=== PATIENT | male | born 2000 | race Caucasian/White ===

== ENCOUNTER 2020-02-08 23:01 | Emergency (ER) | payer MEDICAID ==
[~2020-02-08] VITALS: Ht 190.5 cm; Wt 74.5 kg
[2020-02-08 23:03] VITALS: BP 160/102
[2020-02-08] MEDS ORDERED: TETanus/Pertussis (Acell)/Diphther VAC/PF (Tdap-Adult) 0.5ml syringe IMVAC ONE (23:10)
[2020-02-08] MEDS ORDERED: bacitracin 15gm ointment TP ONE (23:10)
[2020-02-08] MEDS ORDERED: LIDOcaine 1% W/epiNEPHrine 1:200,000 10ml vial IJ ONE (23:10)
--- NOTE | 2020-02-08 23:37 | NUR ---
WOUND FLUSHED W/ 40 ML NS USING AN IV CANNULA TO FLUSH INSIDE OF WOUND
--- NOTE | 2020-02-09 15:44 | NUR ---
PT CALLED TO INFORM THAT HE RECEIVED ANOTHER PT'S PERSCRIPTION WITHIN HIS DISCHARGE PACKET YESTERDAY; 02/08/2020. PT RETURNED THE PERSCRIPTION TO THE ER.
== END 2020-02-09 00:16 | disposition home or self-care (01) ==
LOC: ER 23:02
DX: S00.85XA Superficial foreign body of other part of head, initial encounter (principal); W22.8XXA Striking against or struck by other objects, initial encounter; Y93.89 Activity, other specified; Y92.89 Other specified places as the place of occurrence of the external cause; Y99.8 Other external cause status
CPT/HCPCS: 10120; 90471; 90715; 99284

== ENCOUNTER 2022-05-17 10:35 | Inpatient (IN) | payer OTHER, MEDICAID ==
[~2022-05-17] VITALS: Ht 188 cm; Wt 69.2 kg
[2022-05-17 13:30] VITALS: BP 146/91
[2022-05-17] MEDS ORDERED: loperamide 2mg capsule PO PRN (13:40)
[2022-05-17] MEDS ORDERED: mag hydrox/Alum hydrox/simeth 30ml oral suspension PO PRN (13:40)
[2022-05-17] MEDS ORDERED: magnesium hydroxide 30ml (MOM) UD suspension PO PRN (13:40)
[2022-05-17] MEDS ORDERED: acetaminophen 325mg tablet PO PRN ×2 (13:40)
[2022-05-17] MEDS: NICOTINE POLACRILEX 2 MG LOZENGE BC PRN ×2 (17:33→19:43)
[2022-05-17] MEDS ORDERED: nicotine 21mg patch - 24 hr TD ONE (17:35)
[2022-05-17] MEDS: nicotine 21mg patch - 24 hr TD SCH (17:40)
[2022-05-17] MEDS ORDERED: LORazepam 1 MG tablet PO PRN (18:00)
[2022-05-17] MEDS ORDERED: hydrOXYzine 25 MG tablet PO PRN (18:00)
--- NOTE | 2022-05-17 18:32 | NUR ---
ADMIT NOTE: Pt. is a direct admit from [facility]. Per 5150, Pt. presented as hopeless with thoughts of people being better off without him. He attempted to kill himself by overdosing on whatever pills were available which happened to be Adderall. Pt. cooperative with skin check and admission assessment. Pt. reports that his brother and girlfriend encouraged him to come into [facility] ER after he took a whole bottle of Adderall. Pt. reports that he has had really bad depression for the past 6 months and thats when he started drinking. Pt. states, I never tell people about my feelings. People found out that I started doing therapy and then I had to stop doing therapy because I got kicked off my insurance and then started going downhill. I didnt tell anyone and I snapped. I think I need antidepressants. The drinking numbs me so I dont feel anything. Pt. becomes tearful during interview, states, Ativan helped me. I dont mind stopping drinking, Shelia never been a fan of it. Pt. reports he received a total of 3 mg of Ativan at [facility]. Pt. reports previous suicide gesture a month and a half ago. Pt. states that he drove somewhere with his gun and his girlfriend and parents talked him down. Pt. reports he still has the gun, but that his parents have the ammo. Pt. reports he has an 11 month old daughter. Pt. states, after seeing my daughter I would never attempt suicide again. Pt. started on CIWA protocol. RN endorsed to assistant shift supervisor.
[2022-05-17 20:00] VITALS: BP 121/79
[2022-05-17] MEDS: hydrOXYzine 25 MG tablet PO PRN (20:42)
--- NOTE | 2022-05-18 01:15 | NUR ---
Nurse Progress Note:Reji Problem: Pt. is a direct admit from [facility]. Per 5150, Pt. presented as hopeless with thoughts of people being better off without him. He attempted to kill himself by overdosing on whatever pills were available which happened to be Adderall. Intervention: Provided with a safe and therapeutic environment, clear communication, active listening and positive encouragement. Response:Patient in room talking on phone to girlfriend at shift change. Patient is very polite and receptive. Pt 1:1, Pt denies A/V/H pt states he did come in because he had taken pills but he never had a plan. Patient describes that he had been drinking a lot and not feeling very good about himself. Pt claims that he was seeing a therapist but his Insurance no longer worked for that provider and he had trouble finding help. Pt also iterated that he did take Adderall 15-20 pills, but he thinks it was more attention seeking from his girlfriend and brother. The patient doesn't feel as though he has a serious drinking problem reporting that he only drinks, "lite beer." Patient took Hydroxyzine to help with sleep and anxiety. Pt given CIWA at 1930, 2330, and 0330. Patient cooperative with all assessments. Patient fell asleep shortly after evening meds. Will continue to monitor. Plan: Interrupt current crisis, Provide encouragement and a safe environment. q15 safety checks. Keep monitoring patient and assessing with CIWA.
[2022-05-18] MEDS: NICOTINE POLACRILEX 2 MG LOZENGE BC PRN ×4 (07:48→19:02)
[2022-05-18 08:00] VITALS: BP 124/71
[2022-05-18 08:34] LABS: HEMOGLOBIN A1C 5.2 % (4.5-6.2)
[2022-05-18 08:46] LABS: CHOL/HDL RATIO 2.1 (0.00-4.99); CHOLESTEROL 205 MG/DL (0-200); HDL CHOLESTEROL 98 MG/DL (35-60); LDL CHOLESTEROL 89 MG/DL (50-100); TRIGLYCERIDES 85 MG/DL (20-135)
[2022-05-18] MEDS: hydrOXYzine 25 MG tablet PO PRN ×2 (15:21→19:02)
--- NOTE | 2022-05-18 16:14 | NUR ---
Nurse Progress Note: Reji Problem: Pt. is a direct admit from [facility]. Per 5150, Pt. presented as hopeless with thoughts of people being better off without him. He attempted to kill himself by overdosing on whatever pills were available which happened to be Adderall. Intervention: Provided with a safe and therapeutic environment, clear communication, active listening and positive encouragement. Response: Pt. denies SI, HI, A/VH, reports he was admitted d/t SA and his plans are to return home. Pt. presents as depressed and c/o anxiety; PRN Atarax given, which was effective. Pt. spent most of the shift in his room resting and talking on the phone, he also received a visitor and met with social media community manager. He has received numerous nicotine lozenges PRN and reports they are helpful. Pt. ate all his meal in the main dining with cohorts but keeps to himself. He is clean and fairly groomed and wears unit scrubs. Pt. takes his meds without hesitancy and is pleasant. CIWA continues to be monitored and was decreased to TID per provider. Plan: Interrupt current crisis and provides safe temporary placement, CIWA monitoring
--- NOTE | 2022-05-18 16:43 | NUR ---
Aleksandr is a 21 y/o male who was placed on 5150 for danger to self after he overdosed on Adderall in a suicide attempt. His brother took him to [facility] ED where he was evaluated and placed on 5150. This is his first hospitalization. Aleksandr reported "a bombshell went off in my life" and he was feeling overwhelmed and hopeless. He reported he and his girlfriend's cars had both broken down within days of each other, he has to pay child support and has difficulty affording it, he wasn't seeing his 11 month old daughter, and he had been suspended at work. Aleksandr reported he has struggled with depression for a long time and was usually able to shake it off. He reported he really started to get depressed when he and his ex, the mother of his daughter, broke up. He reported he was left to pay off the ex's bills and she wasn't letting him see their daughter. Aleksandr reported he was suicidal about a month ago and while intoxicated he took a gun and drove to the barn on the property he lives on and started calling friends, "I just wanted to feel loved". Aleksandr reported he has been self-medicating with alcohol, 10 beers/night. He reported he was seeing a counselor through [facility] and had to stop due to insurance issues. He reported he "loved" having someone to talk to. Aleksandr reported he plans on returning to his home where he lives with his girlfriend. He also wants to see a psychiatrist and a counselor. ANNA Mora Addendum: 05/18/22 at 1643 by Marilin CANO Amended: Links added.
[2022-05-18] MEDS ORDERED: traZODone 50mg tablet PO PRN (18:15)
[2022-05-18] MEDS ORDERED: ESCITALOPRAM OXALATE 5 MG TABLET PO ONE (18:15)
[2022-05-18 19:57] VITALS: BP 119/74
--- NOTE | 2022-05-18 23:43 | NUR ---
Nurse Progress Note Problem: Pt. is a direct admit from [facility]. Per 5150, Pt. presented as hopeless with thoughts of people being better off without him. He attempted to kill himself by overdosing on whatever pills were available which happened to be Adderall. Intervention: One to one with the patient and assessed for severity of depressive symptoms and self harm risk. CIWA assessed. Physical assessment completed. PRN medications given were Vistaril and then Trazodone at HS. He is on q 15 minute safety checks. Assessed for side effects to medications. Response: The patient was very pleasant and open when approached for the evening assessment. He stated that he has never had any kind of ETOH withdrawals and did not feel that he was experiencing them now. He scored a 1 on the CIWA because he reported that he had anxiety. His vital signs were WNL. He stated he felt very frustrated about being held on the inpatient and claims that while in the ER on a hold he was told that his girlfriend could stay with him and he was not aware that the 72 hour hold would start once he was admitted. He stated that he preferred to obtain treatment as an outpatient. He denies that he currently feels suicidal and stated that he wanted to live for his daughter, his girlfriend and his family. He then added, "I have a safe place to go" Plan: Continue to assess mood and self harm risk at least every shift and prn. Continue Q 15 minute safety checks. Continue to assess CIWA score until discontinued.
[2022-05-19] MEDS: nicotine 21mg patch - 24 hr TD SCH (07:52)
[2022-05-19 08:00] VITALS: BP 128/77
[2022-05-19] MEDS ORDERED: ESCITALOPRAM OXALATE 5 MG TABLET PO SCH (08:00)
[2022-05-19] MEDS: NICOTINE POLACRILEX 2 MG LOZENGE BC PRN (10:28)
--- NOTE | 2022-05-19 10:44 | NUR ---
DISCHARGE PLANNING Met with Aleksandr's girlfriend, Gracie, when she visited today. She reported she is comfortable with him returning home and wants him to. She reported all guns were removed from the home already. Scheduled Aleksandr follow up with [facility] for a psychiatrist and counseling. He has intake appt tomorrow. Also, sent a referral to [facility] if he would prefer to go there. ANNA Mora
[2022-05-19] MEDS: hydrOXYzine 25 MG tablet PO PRN (12:51)
[2022-05-19] MEDS ORDERED: HYDR-3686 PO (14:02)
[2022-05-19] MEDS ORDERED: ESCI5TAB PO (14:02)
[2022-05-19] MEDS ORDERED: NALT50TA PO (14:02)
[2022-05-19] MEDS ORDERED: TRAZ-251 PO (14:02)
[2022-05-19] MEDS ORDERED: NICO-687 TD (14:02)
--- NOTE | 2022-05-19 15:06 | NUR ---
Discharge Note: Pt. signed all paperwork and recieved all p;ersonal property before leaving. His follow up appt. is with [facility]:05/20/22 at 2 PM with the curriculum development coordinator will call you at 2 PM and Psychiatrist:Appointment: 05/25/22 at 10:30 AM with Heather Glasgow NP [facility]. He ambulated off the unit at 1502.
== END 2022-05-19 15:06 | disposition home or self-care (01) | DRG 885 ==
LOC: ADULT MH 10:35
PROVIDERS: ADMIT Psychiatry & Neurology Psychiatry; ATTEND Psychiatry & Neurology Psychiatry
DX: F33.2 Major depressive disorder, recurrent severe without psychotic features (principal); T43.692A Poisoning by other psychostimulants, intentional self-harm, initial encounter; F10.239 Alcohol dependence with withdrawal, unspecified; R45.851 Suicidal ideations; F41.9 Anxiety disorder, unspecified; Y92.89 Other specified places as the place of occurrence of the external cause; Z79.899 Other long term (current) drug therapy
CPT/HCPCS: 36415; 80061; 83036; 87081; 99285; Q0177

== ENCOUNTER → 2022-09-17 | Emergency (ER) | payer OTHER, MEDICAID ==
[~2022-09-17] VITALS: Ht 188 cm; Wt 70.9 kg
[~2022-09-17] MED LIST: AMOX-117 PO; ESCI5TAB PO; HYDR-3686 PO; NALT50TA PO; NICO-687 TD; TRAZ-251 PO; amox tr/potassium clavulanate 875/125mg TAB PO ONE
[2022-09-17 15:38] VITALS: BP 103/73
== END | disposition home or self-care (01) ==
LOC: ER 15:17
DX: S61.011A Laceration without foreign body of right thumb without damage to nail, initial encounter (principal); W54.0XXA Bitten by dog, initial encounter; Y93.89 Activity, other specified; Y92.89 Other specified places as the place of occurrence of the external cause; Y99.8 Other external cause status
CPT/HCPCS: 73140; 99283

== ENCOUNTER 2023-12-07 10:56 | Emergency (ER) | payer MEDICAID, OTHER ==
[~2023-12-07] VITALS: Ht 188 cm; Wt 72.7 kg
[~2023-12-07 10:56] MED LIST changes: -AMOX-117 PO; -amox tr/potassium clavulanate 875/125mg TAB PO ONE
[2023-12-07 11:20] LABS: BASOPHILS % (AUTO) 0.2 % (0-1); EOSINOPHILS # (AUTO) 0.1 X10'3 (0-0.9); EOSINOPHILS % (AUTO) 0.8 % (0-6); HEMATOCRIT 45.7 % (42.0-52.0); HEMOGLOBIN 15.7 g/dl (14.0-17.9); LYMPHOCYTES # (AUTO) 2.2 X10'3 (1.1-4.8); LYMPHOCYTES % (AUTO) 25.1 % (21-51); MEAN CORPUSCULAR HGB CONC 34.3 g/dL (33.0-36.5); MEAN CORPUSCULAR VOLUME 93.4 FL (78-98); MEAN PLATELET VOLUME 7.6 FL (7.4-10.4); MONOCYTES # (AUTO) 0.5 X10'3 (0-0.9); MONOCYTES % (AUTO) 5.9 % (2-12); PLATELET COUNT 337 X10'3 (140-440); RED CELL DISTRIBUTION WIDTH 13.8 % (11.5-14.5); WHITE BLOOD COUNT 8.8 X10'3 (4.5-11.0)
[2023-12-07 11:55] LABS: ALANINE AMINOTRANSFERASE 44 U/L (12-78); ALBUMIN 4.2 G/DL (3.4-5.0); ALBUMIN/GLOBULIN RATIO 1.2 (1.1-1.5); ALKALINE PHOSPHATASE 58 IU/L (46-116); ASPARTATE AMINO TRANSFERASE 30 U/L (10-37); BILIRUBIN,TOTAL 0.4 MG/DL (0.1-1.0); BLOOD UREA NITROGEN 9 MG/DL (7-18); BUN/CREATININE RATIO 9.4 (10.0-20.0); CHLORIDE 102 MMOL/L (99-107); CREATININE 0.96 MG/DL (0.60-1.10); GLUCOSE 94 MG/DL (70-104); POTASSIUM 4.5 MMOL/L (3.5-5.1); SODIUM 142 MMOL/L (135-145); TOTAL PROTEIN 7.8 G/DL (6.4-8.2); eCRCL 122 ML/MIN; eGFR > 90 ML/MIN
[2023-12-07 12:02] LABS: PRO BRAIN NATRIURETIC PEPTIDE < 30 PG/ML (0-125)
[2023-12-07 12:10] LABS: ANION GAP 8 (8-16); TOTAL CARBON DIOXIDE 32.4 MMOL/L (24-32)
[2023-12-07] MEDS ORDERED: NAPR-56 PO (14:13)
[2023-12-07 14:26] VITALS: BP 131/87; PULSE 85; RESP 16; TEMP 97.9; O2SAT 99
== END 2023-12-07 14:26 | disposition home or self-care (01) ==
LOC: ER 10:57
DX: M94.0 Chondrocostal junction syndrome [Tietze] (principal); Z79.899 Other long term (current) drug therapy
CPT/HCPCS: 36415; 80053; 83880; 84484; 85025; 93005; 99284